=== PATIENT | female | born 1965 | race African-American/Black ===

== ENCOUNTER 2018-01-23 11:46 | Emergency (ER) | payer MEDICAID ==
[~2018-01-23] VITALS: Ht 162.6 cm; Wt 55.0 kg
[2018-01-23] MEDS ORDERED: ACETAMINOPHEN 500MG TABLET PO ONE (12:15)
[2018-01-23] MEDS ORDERED: SODIUM CHLORIDE 0.9% 1000ML BAG (SEPSIS BOLUS) IV ONE (12:15)
[2018-01-23 12:36] LABS: CHLORIDE 101 mEq/L (98-107)
[2018-01-23 12:38] LABS: CLARITY URINE CLEAR (CLEAR); COLOR URINE YELLOW (YELLOW); KETONES URINE NEGATIVE (NEGATIVE); LEUKOCYTE ESTERASE URINE 2+ (NEGATIVE); NITRITE URINE POSITIVE (NEGATIVE); OCCULT BLOOD URINE 2+ (NEGATIVE); PH URINE 5.5 (4.5-8.0); PROTEIN URINE NEGATIVE (NEGATIVE); SPECIFIC GRAVITY URINE 1.009 (1.005-1.030); UROBILINOGEN URINE 0.2 E.U./dL (0.2-1.0)
[2018-01-23 12:41] LABS: BASOPHILS % 0.4 % (0.0-2.0); EOSINOPHILS % 0.2 % (0.0-5.0); HEMOGLOBIN. 13.7 g/dL (12.0-16.0); LYMPHOCYTES % 13.5 % (20.0-50.0); MEAN CORPUSCULAR HEMOGLOBIN 26.3 pg (28.0-32.0); MEAN CORPUSCULAR VOLUME 78.7 fL (81.0-99.0); MEAN PLATELET VOLUME 7.9 fl (7.4-10.4); MONOCYTES % 9.2 % (2.0-8.0); NEUTROPHILS % 76.7 % (40.0-76.0); PLATELET 297 x1000/uL (130-400)
[2018-01-23] MEDS ORDERED: CEFTRIAXONE 1 G PREMIX 50 ML IV STA (13:24)
[2018-01-23 15:07] VITALS: BP 141/90
== END 2018-01-23 15:55 | disposition home or self-care (01) ==
LOC: ER 11:46
DX: N10 Acute pyelonephritis (principal); E87.6 Hypokalemia; F17.200 Nicotine dependence, unspecified, uncomplicated; Z85.41 Personal history of malignant neoplasm of cervix uteri
CPT/HCPCS: 36415; 71045; 80053; 81003; 81025; 83605; 85025; 87040; 87077; 87086; 87186; 93005; 96361; 96365; 99285; J0696; J7030; Z7610